=== PATIENT | male | born 1970 | race Caucasian/White ===

== ENCOUNTER 2020-11-09 10:27 | Emergency (ER) | payer OTHER, SELFPAY ==
[2020-11-09 10:32] VITALS: BP 158/102; PULSE 114; RESP 18; TEMP 37.3; O2SAT 98; BMI 30.7
[2020-11-09 10:37] VITALS: BP 158/102; PULSE 105; RESP 18; O2SAT 98
--- NOTE | 2020-11-09 10:57 | XRR_ITS ---
PROCEDURE INFORMATION: Exam: XR Left Knee Exam date and time: 11/09/2020 11:00 AM Age: 50 years old Clinical indication: Pain and injury or trauma; Fall; Blunt trauma; Knee; Left; Additional info: Fall pain TECHNIQUE: Imaging protocol: XR Left knee. Views: 3 views. COMPARISON: No relevant prior studies available. FINDINGS: Bones/joints: There is a comminuted interarticular avulsion fracture in the lateral metaphysis of the tibia with mild displacement. This finding has oblique longitudinal and transverse components. The remainder of the proximal tibia is otherwise unremarkable. There is a comminuted mildly displaced fracture involving the proximal metaphysis and epiphysis of the fibula. Soft tissues: Normal. XR/XR knee LT 3V* [id number] IMPRESSION: 1. Comminuted interarticular displaced avulsion fracture proximal lateral tibia. 2. Comminuted displaced fracture proximal fibula.
--- NOTE | 2020-11-09 10:57 | CT_ITS ---
WS: [id number] CT ANGIOGRAPHY RUNOFF TO THE ANKLES HISTORY: L leg only - pain trauma TECHNIQUE: Arterial injection is performed during imaging to evaluate the runoff vessels to the ankl es. MIP and volume rendering imaging has also been performed. All images are reviewed. All CT scans a [facility] use at least one of these dose optimization techniques: automated exposure co ntrol; mA and/or kV adjustment per patient size (includes targeted exams where dose is matched to cli nical indication); or iterative reconstruction. Contrast: Omnipaque 350; 95 mL IV. DLP: 1606.8 mGy.cm COMPARISON: None available. Distal aorta is intact. Bilateral common, internal and external iliac arteries are patent without sig nificant stenoses. Common femoral, superficial femoral and deep profunda are intact bilaterally. Norm al appearance of the popliteal arteries with good three-vessel runoff to the ankle. There is no extra of extravasation of the contrast into the soft tissues around the LEFT knee at the site of the traum a. There is extensive soft tissue injury at the LEFT knee edema and soft tissue hematoma surrounding the soft tissues and greatest over the lateral knee. There is a large lipohemarthrosis at the LEFT knee. There is a comminuted fracture involving the late ral tibial plateau. Fracture extends 5 cm into the tibial metaphysis without significant depression. There is an additional comminuted fracture without displacement involving the fibular head. Normal appendix. Visualized GI tract is negative. Urinary bladder is intact. CT/CT angio [facility] [address] IMPRESSION: 1. No arterial or vascular injury within the LEFT lower extremity. No active e xtravasation of IV contrast. 2. Lateral LEFT tibial plateau fracture without depression. 3. Mildly comminuted nondisplaced fractures involving the lateral LEFT tibial plateau and LEFT fibular head. 4. Large lipohemarthrosis at the LEFT suprapatellar bursa. 5. Large amount of soft tissue injury centered around the LEFT knee.
--- NOTE | 2020-11-09 10:59 | ED_ITS ---
HPI - Fall General: Chief Complaint: Fall Stated Complaint: FALL, L LEG/KNEE PAIN, DEFORMITY Time Seen by Provider: 11/09/20 10:29 History of Present Illness: HPI Narrative: 50-year-old male presents emergency room with complaint of left knee and lower leg pain. 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 he stepped off the end of the scaffolding his left lower leg got caught up between the board and the scaffolding he fell approximately 4 feet however his leg remained entangled he put torquing pressure on the leg he was MD complaint: fall Onset (ago): minute(s) Fall from: standing Fall witnessed: yes, by bystander Place fall occurred: work Loss of consciousness: None Prolonged down time: no Symptoms prior to fall: none Context: history of frequent falls Location of injury - extremities: Left: knee Severity: severe Quality: sharp and throbbing Associated symptoms-after fall: Denies abdominal pain, chest pain, confusion, difficulty walking, headache(s), hematuria, lightheadedness, neck pain, numbness, short of breath, vertigo or weakness Review of Systems Const: Denies: fever(s), chills, body aches, change in appetite, fatigue or malaise ENMT: Denies: throat pain, ear or mastoid pain, nasal discharge or nasal congestion Card: Denies: chest pain or lightheadedness Resp: Denies: dyspnea, productive cough or non-productive cough GI: Denies: abdominal pain : Denies: hematuria Musc: Denies: neck pain Skin/Breast: Denies: rash or pruritus Neuro: Denies: headache(s), difficulty walking, vertigo or confusion Physical Exam Const: COMMON NORMALS: no acute distress GENERAL APPEARANCE: cooperative and comfortable ORIENTATION/CONSCIOUSNESS: Yes awake, Yes oriented to person, Yes oriented to place and Yes oriented to time HENMT: COMMON NORMALS: normocephalic, atraumatic, hearing grossly normal bilaterally, external ears normal, EAC's normal, TM's normal bilaterally and Normal nasal mucous membranes and turbinates present HEAD & SCALP: normocephalic and atraumatic NOSE: Normal nasal mucous membranes and turbinates present EXTERNAL EAR: Yes external ears normal EXTERNAL AUDITORY CANAL: EAC's normal TYMPANIC MEMBRANE: TM's normal bilaterally Eye: COMMON NORMALS: Equal, round and reactive pupils present, EOMs intact bilaterally, conjunctivae normal and no scleral icterus CONJUNCTIVA: Yes conjunctivae normal PUPIL: Yes Equal, round and reactive pupils present Neck/C-Spine: COMMON NORMALS: full ROM, no lymphadenopathy, supple and no JVD Resp: COMMON NORMALS: normal respiratory effort, No retractions, No use of accessory muscles and clear to auscultation bilaterally AUSCULTATION: clear to auscultation bilaterally Cardio: COMMON NORMALS: no JVD, regular rate, regular rhythm and No murmurs present (Cardio) RATE: regular rate RHYTHM: regular rhythm GI: COMMON NORMALS: Soft to palpation and No hepatosplenomegaly present AUSCULTATION: Yes normoactive bowel sounds PALPATION: Yes Soft to palpation, No Tenderness to palpation present (GI), No Guarding due to palpation present (GI) and Yes No hepatosplenomegaly present Extremity: COMMON NORMALS: normal to inspection, capillary refill normal, no clubbing, cyanosis or edema, no calf tenderness and no pedal edema Neuro: SENSORIUM/ORIENTATION: Yes oriented to person, Yes oriented to place and Yes oriented to time Skin: COMMON NORMALS: no rashes or lesions noted GENERAL SKIN EXAM: no rashes or lesions noted Course Vital Signs: Vital signs: Vital Signs Temperature 99.1 F 11/09/20 10:32 Pulse Rate 111 H 11/09/20 14:33 Respiratory Rate 18 11/09/20 14:33 Blood Pressure 168/101 11/09/20 14:33 Pulse Oximetry 96 11/09/20 14:33 MDM - Fall MDM Narrative: Medical decision making narrative: Left tibial plateau fracture laterally as well as a fibular head fracture. Discussed Dr. Wiggins will put in a knee immobilizer crutches pain medications he did asked that we repeat CT without contrast for bone reconstructions for surgical planning. Exam for vascular damage was negative. Patient has no passive range of motion pain he does have a lot of swelling in the anterior and lateral portions of left lower leg but there is no sign of compartment syndrome clinically. Discussed signs and symptoms with him return immediately if he has any of these otherwise he will follow up with Dr. Wiggins tomorrow in the office. Discharge Plan Discharge Patient Disposition: Home Clinical Impression: Closed fracture of left tibial plateau, Closed fracture of head of left fibula Condition: Stable Prescriptions: New hydrocodone-acetaminophen 5-325 mg tablet 1 tab PO Q6H PRN (Reason: pain) Qty: 20 RF: 0 Zofran 4 mg tablet 4 mg PO Q6H PRN (Reason: nausea and vomiting) Qty: 15 RF: 0 No Action No Known Home Medications RF: 0 Discharge Orders: Discharge ED (Routine); Ordered 11/09/20 Ordered By: Scotty Rogers Patient Instructions: Opioid Safety Activity Restrictions/Additional Instructions: Case management make arrangements for you to see orthopedics tomorrow. Coding Level of Care Code ED Envelope Sealer Operator for Mehul Harrison
[2020-11-09] MEDS: iohexol 350 mg/mL 100 mL Btl IV (11:30)
[2020-11-09 13:40] VITALS: RESP 18; O2SAT 97
[2020-11-09] MEDS: morphine 4 mg/mL SDV 1 mL IVP (13:40)
[2020-11-09] MEDS: ondansetron 2 mg/ML SDV 2 mL 4 MG IVP (13:40)
--- NOTE | 2020-11-09 13:45 | CT_ITS ---
WS: [id number] CT LEFT KNEE, NONCONTRAST, 3-D IMAGING. HISTORY: Fracture. Technique: All CT scans at [facility] use at least one of these dose optimization techniq ues: automated exposure control; mA and/or kV adjustment per patient size (includes targeted exams wh ere dose is matched to clinical indication); or iterative reconstruction. DLP: 362.65 mGy.cm COMPARISON: Radiograph 11/09/2020 Comminuted fracture through the lateral tibial plateau. There is approximately 2 mm depression along the lateral tibial plateau. Fracture extends 4.5 cm into the tibial metaphysis. Approximately 6 mm di splacement laterally. Fracture extends to involve the lateral tibial spine. There are several small o sseous fragments along the tibial plateau. Mildly comminuted fracture involving the fibular head and metaphysis without displacement. Femoral condyles are intact. There is a very tiny osseous or calcific density adjacent to the medial femoral condyle. No donor sit e evident. May not be related to the recent trauma. Moderate size lipohemarthrosis. There is extensive soft tissue edema around the knee. Greatest amount of blood and edema anteriorly and laterally. CT/CT knee LT wo con* [id number] IMPRESSION: 1. Comminuted lateral tibial plateau fracture extends 4.5 cm into the metaphys is. 2. Minimal depression of lateral tibial plateau with multiple fracture lines i nvolving the tibial plateau. 3. Comminuted but not significantly displaced fibular head fracture. 4. Moderate size lipohemarthrosis.
--- NOTE | 2020-11-09 13:49 | DCPLANNER ---
sales performance manager had message to schedule a follow up appointment for patient with ortho. sales performance manager called the ortho clinic, spoke with Geno, gave clinic patients information. sales performance manager was told that patients information would be printed and reviewed. Clinic will call patient with appointment information.
[2020-11-09 14:33] VITALS: BP 168/101; PULSE 111; RESP 18; O2SAT 96
[2020-11-09 16:16] VITALS: BP 142/89; PULSE 109; RESP 18; TEMP 37.2; O2SAT 98
--- NOTE | 2020-11-11 07:54 | DCPLANNER ---
Patient has a follow up appointment scheduled for Wednesday, November 11, 2020 at 10:[address] Wiggins. Clinic will call patient with appointment information.
--- NOTE | 2021-01-20 07:46 | DCPLANNER ---
Patient had a follow up appointment scheduled for 11.11.[address] Wiggins at [facility] - patient did attend appointment.
== END 2020-11-09 16:30 | disposition home or self-care (01) ==
PROVIDERS: Emergency Provider Family Medicine
DX: S82.142A Displaced bicondylar fracture of left tibia, initial encounter for closed fracture (principal); S82.492A Other fracture of shaft of left fibula, initial encounter for closed fracture; W12.XXXA Fall on and from scaffolding, initial encounter
CPT/HCPCS: 29530; 73562; 73700; 73706; 96374; 96375; 99283; E0114; J2270; J2405; Q9967

== ENCOUNTER → 2020-11-16 08:36 | Outpatient (BNVA) | payer OTHER, SELFPAY | PROVIDERS: PCP Orthopaedic Surgery; Visit Provider Orthopaedic Surgery | DX: S82.142A Displaced bicondylar fracture of left tibia, initial encounter for closed fracture (principal); Z20.822 Contact with and (suspected) exposure to COVID-19; X58.XXXA Exposure to other specified factors, initial encounter | CPT/HCPCS: 87635 ==

== ENCOUNTER 2020-11-19 11:58 | Day surgery (SDC) | payer OTHER, SELFPAY ==
[2020-11-18 15:54] VITALS: BMI 39.0
[2020-11-19] VITALS (17 sets, daily range): BP systolic 139–178; BP diastolic 101–121; PULSE 97–123; RESP 12–21; TEMP 36.1–36.6; O2SAT 91–100
--- NOTE | 2020-11-19 | SCC_ITS ---
Procedure Done: Open reduction internal fixation left lateral tibial plateau 66.9 seconds of fluoroscopic guidance, for a cumulative dose of 4.41 mGy, was provided to Dr. Wiggins by the radiology department. C-arm images of the LEFT knee were saved for the patient's permanent record. [facility]
--- NOTE | 2020-11-19 | XR_ITS ---
WS: [id number] Left knee, C-arm fluoroscopy, 11/19/2020 Clinical Data: OR PICS Comparison: Left knee, 11/09/2020. Findings: A lateral plate is attached to the proximal left tibia with multiple orthopedic screws. The plate is reducing the comminuted lateral tibial plateau fracture. The comminuted left fibular head fracture is noted. XR/XR knee LT 1-2V 62201 Impression: Internal fixation of lateral tibial plateau fracture of the left knee Kellgren-Jorge Classification: NA
--- NOTE | 2020-11-19 12:34 | ANES.PREANE2 ---
Pre-Anesthetic Assessment Pre-Anesthetic Assessment: Height/Weight: Height 1.8 m Weight 127.006 kg Temp Pulse Resp BP Pulse Ox 97 F L 118 H 18 150/117 96 11/19/20 12:26 11/19/20 12:26 11/19/20 12:26 11/19/20 12:26 11/19/20 12:26 Preop Diagnosis: Fracture Left lateral tibial plateau Proposed Procedure: Operation Date: 11/19/20 13:45 Proposed Procedures p ORIF Tibial Plateau 46081 S82.142A(Left) - Nba Wiggins MD Was Beta Eileen taken within 24 hours: N/A Was Clonidine taken within 24 hours: N/A Social: Social History: No alcohol and No tobacco Exam: Pre-Anes Outpt Exam: alert, oriented x 3, clear to auscultation bilaterally and regular rate & rhythm Airway: Submandibular: WNL Cervical ROM: WNL MP: 2 History/ROS: No significant complaints Pulmonary: Pulmonary: None reported CV/HEM: CV/HEM: None reported : : None reported Hepatic: Hepatic: None reported GI: GI: None reported Metabolic: Metabolic: Morbid obesity Musc/skel: Musc/skel: None reported Neuropsych: Neuropsych: None reported Anesthetic Plan: ASA status: 2 Anesthesia: General Data Anesthesia Cardiac Studies: No Data to Display
--- NOTE | 2020-11-19 13:52 | W.PM.OPSUD ---
Surgery/Procedure H&P Update DATE OF PROCEDURE: November 19, 2020 DATE H&P PERFORMED: 11/11/20 PREOP DIAGNOSIS: Fracture Left lateral tibial plateau PLANNED PROCEDURE: Operation Date: 11/19/20 13:45 Proposed Procedures p ORIF Tibial Plateau 29052 S82.142A(Left) - Nba Wiggins MD
--- NOTE | 2020-11-19 14:14 | ANE.PACU2 ---
Inpatient post-anesthesia follow up: Airway intact: Yes Vital signs: Temperature 97 F Pulse Rate 118 Respiratory Rate 18 Blood Pressure 150/117 Pulse Oximetry 96 Oxygen Delivery Me thod Room Air Oxygen Flow Rate Fraction of Inspir ed Oxygen Hydration adequate: Yes Nausea and vomiting: No Pain level: 1 Mental status: Baseline
--- NOTE | 2020-11-19 16:02 | PM.OP ---
Operative Report Date of procedure: November 19, 2020 Pre-op Diagnosis: Fracture Left lateral tibial plateau Post-op diagnosis: same Post-op Findings: Same Procedure Done: Open reduction internal fixation left lateral tibial plateau Pathology: none sent Anesthesia: General Estimated blood loss (mL): 100 Tourniquet time (min): 47 Complications: None Findings: The patient had stable split fracture of his lateral tibial plateau. He had no cruciate or collateral ligament laxity with examination under anesthesia Condition: stable Disposition: PACU Procedure: The operating room and given 2 g of Ancef. He was given a general anesthesia. He was prepped and draped in the supine position with his left lower extremity exposed. 10 cm long anterior lateral incision was made beginning just proximal to the joint line extending distally. The lateral border of the tibia was identified. A small cuff of tissue was left for later repair and the lateral musculature was elevated. The iliotibial band was reflected off of Halle's tubercle some periosteally gaining access to the lateral tibial plateau. With longitudinal traction and no varus force the lateral fragment could be elevated back into position. It was provisionally held in place with a K wire. The Cortez Variax plate was placed over the lateral tibia in this position verified under fluoroscopy. It was fixed distally with nonlocking screws providing a buttress plate maintaining reduction and approximately with 4 locking screws to better control the proximal fragment. Intraoperative imaging showed very good alignment of the proximal tibia. The knee was irrigated with saline. Anterior lateral musculature was repaired back to the cuff of tissue over the anterior tibia with 0 Vicryl. The tourniquet was deflated. Subcutaneous tissues were closed with 2-0 Vicryl and the skin was closed with skin stephanie. Xeroflo gauze 4 x 4's ABD pads web roll and Stuart wrap and a knee immobilizer were applied. The patient was extubated taken recovery room in stable condition.
[2020-11-19] MEDS: labetalol 5 mg/mL SDV 20mL IVP ×2 (16:16→16:35)
--- NOTE | 2020-11-19 16:19 | ANE.PACU2 ---
Inpatient post-anesthesia follow up: Airway intact: Yes Vital signs: Temperature 97 F Pulse Rate 123 Respiratory Rate 21 Blood Pressure 163/120 Pulse Oximetry 99 Oxygen Delivery Me thod Simple Mask Oxygen Flow Rate 8 Fraction of Inspir ed Oxygen Hydration adequate: Yes Nausea and vomiting: No Pain level: 2 Mental status: Baseline
[2020-11-19] MEDS: HYDROcodone-acetaminophen 5-325 mg Tablet 1 TAB PO (17:24)
[2020-11-19] MEDS: sodium chloride 0.9% 1,000 ML 30 ML IV (17:25)
== END 2020-11-19 17:47 | disposition home or self-care (01) ==
PROVIDERS: PCP Orthopaedic Surgery; Visit Provider Orthopaedic Surgery
PROC: (CPT 27536; principal; 2020-11-19 13:25)
DX: S82.142A Displaced bicondylar fracture of left tibia, initial encounter for closed fracture (principal); W17.89XA Other fall from one level to another, initial encounter; E66.01 Morbid (severe) obesity due to excess calories; Z68.39 Body mass index [BMI] 39.0-39.9, adult
CPT/HCPCS: 27536; 73560; 76000; C1713; J0690; J1170; J1580; J2250; J2405; J2704; J3010; J3490; J7030

== ENCOUNTER → 2020-12-30 11:13 | Outpatient (BNVA) | payer OTHER, SELFPAY | PROVIDERS: PCP Orthopaedic Surgery; Visit Provider Orthopaedic Surgery | DX: Z48.89 Encounter for other specified surgical aftercare (principal) | CPT/HCPCS: 73562 ==

== ENCOUNTER → 2021-01-27 11:01 | Outpatient (BNVA) | payer OTHER, SELFPAY | PROVIDERS: PCP Orthopaedic Surgery; Visit Provider Orthopaedic Surgery | DX: Z48.89 Encounter for other specified surgical aftercare (principal); S82.142A Displaced bicondylar fracture of left tibia, initial encounter for closed fracture; X58.XXXA Exposure to other specified factors, initial encounter | CPT/HCPCS: 73562 ==